=== PATIENT | male | born 1985 | race African-American/Black ===

== ENCOUNTER 2016-12-21 20:40 | Emergency (ER) | payer OTHER ==
[2016-12-21 20:42] VITALS: BP 183/100; PULSE 98; RESP 16; TEMP 98.1; O2SAT 98
[2016-12-21] MEDS ORDERED: PRED-503 PO (21:35)
[2016-12-21] MEDS ORDERED: DIPH25TA2 PO (21:35)
--- NOTE | 2016-12-21 21:39 | PD ---
HPI Chief Complaint: Bite or Sting Time Seen by Provider: 21:36 Travel History International Travel<30 days: No Contact w/Intl Traveler<30days: No Traveled to known affect area: No History of Present Illness HPI 31-year-old black male presents emergency Department with a wasp sting to the left cheek. He states that this occurred at work earlier today around 1:30. He was placing a sign back into the ground when they came out and stung him in his face. He has had swelling around the left eye. He denies any visual changes. No glossal edema or difficulty swallowing. No shortness breath or wheezing. No other rashes or skin changes. Pain is mild to moderate. No history of allergic reactions to insect bites PFSH Past Medical History Medical History: Denies Significant Hx Past Surgical History Surgical History: No Previous Surgery Social History Alcohol Use: Yes (OCC) Tobacco Use: Yes (OCC) Substance Use: No Allergies-Medications (Allergen,Severity, Reaction): Coded Allergies: No Known Allergies (Unverified , 12/21/16) Reported Meds & Prescriptions Reported Meds & Active Scripts Active Diphenhydramine (Diphenhydramine HCl) 25 Mg Tab 50 Mg PO Q6H PRN 5 Days Deltasone (Prednisone) 20 Mg Tab 40 Mg PO BID Review of Systems Except as stated in HPI: all other systems reviewed are Neg Physical Exam Narrative GENERAL: Well-developed, well-nourished in no acute distress. Nontoxic appearing. HEAD: Patient has swelling around the left periorbital area and left cheek. It' s mildly red, warm and tender. The eyes approximately 50% closed using a edema. EYES: Pupils equal round and reactive. Extraocular motions intact. No scleral icterus. No injection or drainage. ENT: TMs clear without erythema. The external auditory canals clear. Nose: clear . Posterior pharynx is pink and moist. No tonsillar edema or exudate. Uvula midline. Airway patent. NECK: Trachea midline.Supple, nontender, moves head freely. No central bony tenderness or spasm. CARDIOVASCULAR: Regular rate and rhythm without murmurs, gallops, or rubs. RESPIRATORY: Clear to auscultation. Breath sounds equal bilaterally. No wheezes , rales, or rhonchi. GASTROINTESTINAL: Abdomen soft, non-tender, nondistended. No hepato-splenomegaly , or palpable masses. No guarding. EXTREMITIES: No clubbing, cyanosis, or edema. No joint tenderness, effusion, or edema noted. BACK: Nontender without deformity or crepitance. No flank tenderness. Data Data Last Documented VS Vital Signs Date Time Temp Pulse Resp B/P Pulse Ox O2 Delivery O2 Flow Rate FiO2 12/21/16 20:42 98.1 98 16 183/100 98 Room Air Orders Dexamethasone Inj (Decadron Inj) (12/21/16 21:45) Diphenhydramine Inj (Benadryl Inj) (12/21/16 21:45) MDM Medical Decision Making Medical Screen Exam Complete: Yes Emergency Medical Condition: Yes Medical Record Reviewed: Yes Differential Diagnosis MDM: High Differential diagnoses:cellulitis, lymphangitis, abrasion, contact dermatitis, insect bite local reaction Narrative Course This is insect bite with local reaction patient's given Decadron 10 mg IM, Benadryl 50 g IM, ice pack. Diagnosis Primary Impression: insect bite with local reaction left face Patient Instructions: General Instructions Departure Forms: Tests/Procedures, Work Release Special Instructions: No work 12/22/16 Additional Instructions: Rest. Ice packs for the next day. Prednisone and Benadryl. Follow-up with a medical doctor next 2-3 days if symptoms persist. Return to the ER for any problems. Med/Other Pt SpecificInfo: Prescription(s) given Scripts Diphenhydramine 25 Mg Tab50 Mg PO Q6H PRN (ALLERGIES) 5 Days Ref 0 Prov:Skyler Carcamo MD 12/21/16 Prednisone (Deltasone)20 Mg Tab40 Mg PO BID #12 TAB Prov:Skyler Carcamo MD 12/21/16 Disposition: 01 DISCHARGE HOME Condition: Stable Lev Peace Dec 21, 2016 21:39
[2016-12-21] MEDS ORDERED: DEXAMETHASONE SOD PHOS 20 MG/5 ML VIAL IM ONE (21:45)
[2016-12-21] MEDS ORDERED: diphenhydrAMINE HCL 50 MG/ML VIAL IM ONE (21:45)
== END 2016-12-21 22:15 | disposition home or self-care (01) ==
LOC: NEPK 20:40
DX: S00.86XA Insect bite (nonvenomous) of other part of head, initial encounter (principal); W57.XXXA Bitten or stung by nonvenomous insect and other nonvenomous arthropods, initial encounter
CPT/HCPCS: 96372; 99284; J1100; J1200

== ENCOUNTER 2017-06-22 08:10 | Emergency (ER) | payer OTHER ==
[~2017-06-22] VITALS: Ht 185.4 cm; Wt 172.5 kg
[~2017-06-22 08:10] MED LIST: DIPH25TA2 PO; PRED-503 PO
[2017-06-22 08:13] VITALS: BP 165/99; PULSE 88; RESP 14; TEMP 97.6; O2SAT 95
--- NOTE | 2017-06-22 08:42 | PD ---
HPI Chief Complaint: Pain: Acute or Chronic Time Seen by Provider: 08:33 Travel History International Travel<30 days: No Contact w/Intl Traveler<30days: No Traveled to known affect area: No History of Present Illness HPI 32-year-old male presents to the emergency Department with complaint of right wrist pain since Monday after pulling a sign out of the ground. She developed pain later that day after coming home from work. Denies paresthesias, loss of sensation to the affected extremity. Denies fever, vomiting. Rates pain 12/29. Today has taken Tylenol, tried Biofreeze, and Rayo bandage for symptom management. No known relieving factors. Aggravated with movement and palpation. No primary care provider. No known allergies. Denies significant past medical history. Has no medical complaints. No other modifying factors or associated signs and symptoms. PFSH Social History Alcohol Use: Yes (OCC) Tobacco Use: Yes (OCC) Substance Use: No Allergies-Medications (Allergen,Severity, Reaction): Coded Allergies: No Known Allergies (Unverified , 12/21/16) Reported Meds & Prescriptions Reported Meds & Active Scripts Active Ibuprofen 800 Mg Tab 800 Mg PO Q6HR PRN Diphenhydramine (Diphenhydramine HCl) 25 Mg Tab 50 Mg PO Q6H PRN 5 Days Deltasone (Prednisone) 20 Mg Tab 40 Mg PO BID Review of Systems Except as stated in HPI: all other systems reviewed are Neg Physical Exam Narrative GENERAL: Well-nourished, well-developed black male patient, in no acute distress SKIN: Warm and dry. HEAD: Atraumatic. Normocephalic. EYES: Pupils equal and round. No scleral icterus. No injection or drainage. ENT: Mucosa pink and moist. Airway patent. NECK: Trachea midline. CARDIOVASCULAR: Regular rate. RESPIRATORY: No accessory muscle use. GASTROINTESTINAL: Obese. MUSCULOSKELETAL: Right wrist with tenderness on palpation; no erythema ; mild edema; decreased range of motion; decreased manager customer strength. Right hand with full range of motion at all joints. Right upper extremity is supple and non- tense with 2+ radial pulse and sensory intact. No obvious deformities. No clubbing. No cyanosis. NEUROLOGICAL: Awake and alert. Oriented 3. No obvious cranial nerve deficits. Motor grossly within normal limits. Normal speech. PSYCHIATRIC: Appropriate mood and affect; insight and judgment normal. Data Data Last Documented VS Vital Signs Date Time Temp Pulse Resp B/P (MAP) Pulse Ox O2 Delivery O2 Flow Rate FiO2 06/22/17 08:13 97.6 88 14 165/99 (121) 95 Orders Orders Wrist, Complete ([id number]) (06/22/17 08:34) Ibuprofen (Motrin) (06/22/17 08:45) Ed Discharge Order (06/22/17 09:20) Splint Or Brace Apply/Monitor (06/22/17 09:20) [facility] Medical Decision Making Medical Screen Exam Complete: Yes Emergency Medical Condition: Yes Medical Record Reviewed: Yes Differential Diagnosis Sprain, fracture, injury Narrative Course 32-year-old male with right wrist injury. Ibuprofen and right wrist x-ray ordered. 09: Right wrist x-ray with no acute findings. Discussed findings with the patient. Velcro wrist splint provider for support. Ibuprofen prescribed for home. Instructed patient to follow-up in 7-10 days if symptoms persist. Instructed patient to follow up with primary care provider. Patient verbalizes understanding and agreement with treatment plan. Patient is medically cleared and stable for discharge. Discussed reasons to return to the emergency department. Patient agrees with treatment plan. The patients vital signs are stable and the patient is stable for outpatient follow-up and treatment. Patient discharged home, stable and in no acute distress. Diagnosis Primary Impression: Wrist injury Qualified Codes: S69.91XA - Unspecified injury of right wrist, hand and finger (s), initial encounter Referrals: Orthopaedic Surgeon Primary Care Physician Patient Instructions: General Instructions, Wrist Sprain (ED) Departure Forms: Tests/Procedures, Work Release Enter return to work date: Jun 26, 2017 Additional Instructions: Tylenol or ibuprofen as directed and as needed to reduce pain Rest, ice, compress, and elevate extremity to decrease pain and inflammation Rayo wrap for support Splint for support Avoid aggravating activity; increase activity as tolerated Follow-up with primary care provider Return to the emergency department immediately with worsening symptoms Med/Other Pt SpecificInfo: Prescription(s) given Scripts Ibuprofen (Ibuprofen) 800 Mg Tab 800 MG PO Q6HR Y for PAIN, #30 TAB 0 Refills Prov: Yadira Burnette 06/22/17 Disposition: 01 DISCHARGE HOME Condition: Stable Yadira Burnette Jun 22, 2017 08:42
[2017-06-22] MEDS ORDERED: IBUPROFEN 800 MG TAB PO ONE (08:45)
--- NOTE | 2017-06-22 08:53 | RADRPT ---
EXAM DATE/TIME: 06/22/2017 08:45 [facility] COMPARISON: No previous studies available for comparison. INDICATIONS : Right posterior wrist pain after pulling injury. MEDICAL HISTORY : None. SURGICAL HISTORY : None. ENCOUNTER: Initial ACUITY: 2 days PAIN SCORE: 8/10 LOCATION: Right posterior wrist FINDINGS: Three view examination of the right wrist demonstrates no soft tissue swelling, dislocation, or fract ure. The carpal bones are in normal alignment. The joint spaces are maintained. Bony mineralizatio n is normal. CONCLUSION: 1. No acute fracture or dislocation. Den Mattson MD on June 22, 2017 at 8:49 Board Certified Radiologist. This report was verified electronically.
[2017-06-22] MEDS ORDERED: IBUP1TAB7 PO (09:19)
== END 2017-06-22 10:07 | disposition home or self-care (01) ==
LOC: NEPD 08:10
DX: S69.91XA Unspecified injury of right wrist, hand and finger(s), initial encounter (principal); E66.9 Obesity, unspecified; X58.XXXA Exposure to other specified factors, initial encounter; Z72.0 Tobacco use; Z79.899 Other long term (current) drug therapy
CPT/HCPCS: 73110; 99283; L3908